=== PATIENT | female | born 1955 | race Caucasian/White ===

== ENCOUNTER 2017-08-09 09:43 | Day surgery (SDC) | payer MEDICAID ==
[2017-08-02 13:31] VITALS: BMI 25.9
[2017-08-09 10:06] LABS: BASO # 0.01 K/mm3 (0.0-2.0); BASO % 0.1 % (0.0-3.0); EOS # 0.2 (0.0-0.7); EOS % 2.3 % (1.5-5.0); GRAN # 3.26 (1.4-6.5); GRAN % 46.6 % (50.0-68.0); HEMOGLOBIN 11.5 g/dL (12.0-16.0); LYMPH # 3.2 (1.2-3.4); LYMPH % 45.1 % (22.0-35.0); MEAN CELL VOLUME 77.1 fl (80.0-105.0); MEAN CORPUSCULAR HEMOGLOBIN 25.3 pg (25.0-35.0); MEAN CORPUSCULAR HGB CONC 32.8 g/dl (31.0-37.0); MEAN PLATELET VOLUME 9.1 fl (7.0-11.0); MONO # 0.4 (0.1-0.6); MONO % 5.9 % (1.0-6.0); RBC 4.55 10^6/uL (3.5-6.1); RED CELL DISTRIBUTION WIDTH 14.9 % (11.5-14.5)
[2017-08-09 10:16] LABS: BLOOD UREA NITROGEN 19 mg/dL (7-21); CALCIUM 9.4 mg/dL (8.4-10.5); GFR AFRICAN-AMERICAN > 60; GFR NON-AFRICAN AMERICAN > 60
[2017-08-09 10:19] LABS: INR 1.07 (0.93-1.08); PARTIAL THROMBOPLASTIN TIME 35.7 Seconds (25.1-36.5); PROTHROMBIN TIME 12.3 SECONDS (9.4-12.5)
[2017-08-09] MEDS ORDERED: Midazolam 2 MG/2 ML VIAL ONE (12:55)
[2017-08-09] MEDS ORDERED: Oxycodone/Acetaminophen 5/325 mg Tab PO PRN (13:45)
[2017-08-09] MEDS ORDERED: Sodium Chloride 0.45% 1,000 ML IV SCH (13:45)
[2017-08-09 15:13] VITALS: BP 115/68; PULSE 93; RESP 18; TEMP 97.7; O2SAT 94
--- NOTE | 2017-08-09 18:43 | US ---
PROCEDURE: Ultrasound-guided right thyroid fine needle aspiration biopsy. CLINICAL HISTORY: 9 mm right thyroid nodule with calcification. Evaluate for malignancy. PHYSICIAN(S): Rufino Benites M.D. TECHNIQUE: The relative risks and indications for the procedure were explained to the patient and consent obtained. The patient was placed supine on the stretcher with the neck extended and preliminary sonography of the thyroid performed. This reveal a dominant 9 mm calcified nodule in the right thyroid. Several additional small nodules are present bilaterally The neck was prepped and draped in the usual sterile fashion. Conscious sedation and monitoring were provided throughout the procedure by a nurse. 1% Xylocaine was used to anesthetize the skin and soft tissues at the access site. Three passes with a 22-gauge needle were performed under ultrasound guidance for fine needle aspiration of the 9 mm calcified nodule in the right thyroid. The slides were reviewed by pathology and deemed adequate. The patient tolerated the procedure well. IMPRESSION: 1. Ultrasound guided fine needle aspiration of a 9 mm calcifiednodule in the right thyroid.
== END 2017-08-09 15:30 | disposition home or self-care (01) ==
LOC: SDS 09:43
PROVIDERS: ATTEND Radiology Vascular & Interventional Radiology
DX: E04.1 Nontoxic single thyroid nodule (principal); I10 Essential (primary) hypertension
CPT/HCPCS: 10022; 36415; 76942; 80048; 85025; 85610; 85730; 88173; 88305; 99152; 99153; J2250; J2405; J3010; J7030